=== PATIENT | male | born 1975 | race Two or more races ===

== ENCOUNTER 2017-04-21 22:00 | Emergency (ER) | payer OTHER ==
[~2017-04-21] VITALS: Ht 172.7 cm; Wt 100.0 kg
[2017-04-21 22:16] VITALS: Ht 172.7 cm; Wt 100.0 kg
[2017-04-21 22:19] VITALS: BP 130/90; PULSE 90; RESP 20; TEMP 98.1
[2017-04-21] MEDS ORDERED: SOD CHLORIDE 0.9% 1,000 ML IV STA (22:26)
--- NOTE | 2017-04-21 23:14 | ERD ---
ER Documentation Chief Complaint Chief Complaint ETOH HPI This is a 42-year-old male with a past medical history of diabetes and chronic heavy alcohol abuse who is presenting with alcohol intoxication and a progressive worsening cough over the last 2-3 days. The patient endorses chest pain and mild shortness of breath associated with his cough. He also feels congested. The patient does feel sick. He feels fatigued. He does not endorse myalgias. He has not had a fever or chills. The patient also endorses a mild generalized headache, worse with coughing. The patient has had no vision changes. The patient does not endorse neck or back pain. The patient denies lightheadedness or dizziness. The patient denies nausea or vomiting. The patient denies abdominal pain or changes to bowel movements or urination. The patient has had no focal deficits. The patient has had no weakness or numbness or tingling to the face or extremities. ROS All systems reviewed and are negative except as per history of present illness. Medications Home Meds Reported Medications Insulin Glargine,Hum.rec.anlog (Basaglar Kwikpen U-100) 100 Unit/1 Ml Insuln.pen , 13 UNIT SC QAM 04/21/17 Metformin* (Glucophage*) 1,000 Mg Tablet, 1000 MG PO BID, #60 TAB 04/21/17 Allergies Allergies: Coded Allergies: No Known Allergy (Unverified , 04/23/14) PMhx/Soc History of Surgery: No Anesthesia Reaction: No Hx Neurological Disorder: Yes (CVA) Hx Respiratory Disorders: Yes (Asthma) Hx Cardiac Disorders: No Hx Psychiatric Problems: No Hx Miscellaneous Medical Probl: Yes (PSOARIASIS, DM NON COMPLIANT) Hx Alcohol Use: Yes (DAILY 1-2 BOTTLES OF GENESY) Hx Substance Use: No Hx Tobacco Use: Yes Smoking Status: Current every day smoker FmHx Family History: diabetes Physical Exam Vitals Vital Signs Date Time Temp Pulse Resp B/P Pulse Ox O2 Delivery O2 Flow Rate FiO2 04/21/17 22:19 98.1 90 20 130/90 98 Room Air 04/21/17 22:16 98.1 94 20 130/90 98 Physical Exam Const: No apparent distress, well-developed, well-nourished Head: Normocephalic, Atraumatic Eyes: Normal Conjunctiva. Extraocular movements intact. Pupils equal, round and reactive to light ENT: Normal External Ears, Nose and Mouth. Neck: Full range of motion. No meningismus. Resp: Clear to auscultation bilaterally, No wheezes, rales or rhonchi Cardio: Regular rate and rhythm. No murmurs, rubs or gallops Abd: Obese, soft, non tender, non distended. Normal bowel sounds Skin: No petechiae or rashes Back: No midline tenderness. No CVA tenderness Ext: No cyanosis, or edema. Diffuse scattered plaque-like lesions resembling psoriasis Neur: Awake and alert, oriented 4. Cranial nerves intact. No facial droop. Normal strength, sensation and coordination. Psych: Normal Mood and Affect Result Diagram: 04/21/17 2300 04/21/17 2300 Results 24 hrs Laboratory Tests Test 04/21/17 22:26 04/21/17 23:00 Bedside Glucose 368mg/dL White Blood Count 7.210^3/ul Red Blood Count 4.8210^6/ul Hemoglobin 15.7g/dl Hematocrit 45.0% Mean Corpuscular Volume 93.4fl Mean Corpuscular Hemoglobin 32.6pg Mean Corpuscular Hemoglobin Concent 34.9g/dl Red Cell Distribution Width 12.1% Platelet Count 63592^3/UL Mean Platelet Volume 9.2fl Neutrophils % 43.0% Lymphocytes % 49.6% Monocytes % 5.7% Eosinophils % 1.1% Basophils % 0.3% Nucleated Red Blood Cells % 0.0/100WBC Neutrophils # 3.110^3/ul Lymphocytes # 3.610^3/ul Monocytes # 0.410^3/ul Eosinophils # 0.110^3/ul Basophils # 0.010^3/ul Nucleated Red Blood Cells # 0.010^3/ul Prothrombin Time 12.7Sec Prothrombin Time Ratio 1.0 INR International Normalized Ratio 0.94 Sodium Level 141mmol/L Potassium Level 4.0mmol/L Chloride Level 100mmol/L Carbon Dioxide Level 24mmol/L Anion Gap 21 Blood Urea Nitrogen 12mg/dl Creatinine 0.72mg/dl Glucose Level 356mg/dl Calcium Level 9.3mg/dl Total Bilirubin 0.3mg/dl Direct Bilirubin 0.00mg/dl Indirect Bilirubin 0.3mg/dl Aspartate Amino Transf (AST/SGOT) 66IU/L Alanine Aminotransferase (ALT/SGPT) 123IU/L Alkaline Phosphatase 89IU/L Troponin I < 0.012ng/ml Total Protein 8.1g/dl Albumin 4.5g/dl Globulin 3.60g/dl Albumin/Globulin Ratio 1.25 Lipase 248U/L Ethyl Alcohol Level 281.0mg/dl Current Medications Medications (Trade) Dose Ordered Sig/Melba Route PRN Reason Start Time Stop Time Status Last Admin Dose Admin Sodium Chloride (NS) 1,000 ml @ 1,000 mls/hr Q1H STAT IV 04/21/17 22:26 04/21/17 23:25 DC 04/21/17 22:30 Procedures/MDM MDM The patient's presentation warrants further investigation. I do suspect an upper respiratory tract infection in this patient. There is a possibility of pneumonia, so a chest x-ray will be completed. Blood work will also be obtained to evaluate for infection as well. The patient does clinically appear intoxicated. His alcohol level will be sent off. The patient does endorse chest pain. This is likely associated with his cough. However, a cardiac workup will also be performed. LABS The patient's blood work was obtained and reviewed. The patient's CBC shows no leukocytosis and no left shift. The patient is afebrile and does not appear systemically ill. I do not suspect a systemic infection. The patient is not anemic today. The patient's platelet count is unremarkable. The patient's CMP shows no signs of metabolic or electrolyte emergencies. The patient does have hyperglycemia with a mild elevation of his anion gap. However, the patient's carbon dioxide is normal, and I have low suspicion for DKA. The patient will be given IV fluids in the emergency department. The patient also has an elevation of his transaminases, which is likely attributed to his chronic alcohol use. It could also be reactive, but it does not require emergent evaluation. This may be followed as an outpatient. The patient has unremarkable renal function testing. His INR is unremarkable. His lipase is within normal limits. Troponin is negative. Alcohol level is 281. EKG EKG read by me: Rate/Rhythm: Regular rate and rhythm at a rate of 83 bpm Intervals: Normal [place]: Normal Impression: No evidence of ischemia or arrhythmia IMAGING CXR FINDINGS: The cardiomediastinal silhouette is within normal limits. The lungs are clear. No signs of pleural fluid or pneumothorax are seen. The osseous structures and soft tissues are unremarkable. IMPRESSION: No evidence for active cardiopulmonary disease. Electronically viewed and signed by Shannon Adkins Physician on 04/21/2017 23:15 TREATMENT/DISPOSITION The patient has symptoms of a URI. I do not feel that he requires antibiotics at this time given his normal white count and clear chest x-ray. The patient does not have systemic symptoms consistent with the flu. He was given IV fluids in the emergency department in addition to Toradol with resolution of his discomfort. The patient does have a history of chronic alcohol abuse with some sequelae on his blood work. Alcohol abuse was discussed with the patient and resources were offered regarding alcohol cessation. The patient's chest pain is only with coughing. I have low suspicion for acute coronary syndrome. The patient does not have any evidence of pneumothorax or pleural effusion or pulmonary edema or pneumonia. The patient did have hyperglycemia. He reportedly missed his diabetes medicines today. He was educated on the importance of strict blood sugar control. The patient will follow up with his primary care doctor regarding his psoriasis. At this time, I feel that the patient stable for discharge. The patient will need follow-up with his primary care physician in 2-3 days. The patient will be given strict precautions with which to return to the emergency department. The patient's blood pressure was elevated at greater than 120/80 while in the emergency department. The patient was otherwise stable with no evidence of hypertensive urgency or emergency or end organ damage. The patient does not require admission for blood pressure control. I have discussed with the patient the risks of hypertension. I have advised the patient to follow up with the primary care physician for outpatient monitoring and treatment for hypertension in 2-3 days. I have instructed the patient to return to the ER for any new or worsening symptoms including chest pain, shortness of breath, headache, blurred vision, confusion, nausea, vomiting or LOC. Disclaimer: Inadvertent spelling and grammatical errors are likely due to EHR/ dictation software use and do not reflect on the overall quality of patient care. Note that the electronic time recorded on this note does not necessarily reflect the actual time of the patient encounter. Departure Diagnosis: Primary Impression: URI (upper respiratory infection) URI type: unspecified URI Qualified Code: J06.9 - Upper respiratory tract infection, unspecified type Additional Impressions: Alcohol intoxication Complication of substance-induced condition: uncomplicated Qualified Code: F10.920 - Alcoholic intoxication without complication Chest pain Chest pain type: unspecified Qualified Code: R07.9 - Chest pain, unspecified type Transaminitis Hyperglycemia Psoriasis KENNY PATEL MD Apr 21, 2017 23:14
[2017-04-21 23:15] LABS: BASOPHILS % 0.3 % (0.0-2.0); EOSINOPHILS # 0.1 10^3/ul (0.0-0.5); EOSINOPHILS % 1.1 % (0.0-7.0); HEMOGLOBIN 15.7 g/dl (14.0-18.0); LYMPHOCYTES # 3.6 10^3/ul (0.8-2.9); LYMPHOCYTES % 49.6 % (15.0-51.0); MEAN CORPUSCULAR HEMOGLOBIN 32.6 pg (29.0-33.0); MEAN CORPUSCULAR HGB CONC 34.9 g/dl (32.0-37.0); MEAN CORPUSCULAR VOLUME 93.4 fl (82.0-101.0); MEAN PLATELET VOLUME 9.2 fl (7.4-10.4); MONOCYTE # 0.4 10^3/ul (0.3-0.9); MONOCYTES % 5.7 % (0.0-11.0); NEUTROPHIL # 3.1 10^3/ul (1.6-7.5); PLATELET COUNT 196 10^3/UL (140-415); RED BLOOD COUNT 4.82 10^6/ul (4.70-6.10); RED CELL DISTRIBUTION WIDTH 12.1 % (11.5-14.5); WHITE BLOOD COUNT 7.2 10^3/ul (4.8-10.8)
--- NOTE | 2017-04-21 23:15 | RADRPT ---
PROCEDURE: XR Chest. CLINICAL INDICATION: Chest pain TECHNIQUE: 2 frontal views of the chest in apical lordotic position. COMPARISON: Today, about 4-1/2 hours ago FINDINGS: The cardiomediastinal silhouette is within normal limits. The lungs are clear. No signs of pleural f luid or pneumothorax are seen. The osseous structures and soft tissues are unremarkable. IMPRESSION: No evidence for active cardiopulmonary disease. RPTAT: [facility] Physician Mayito Date Time Electronically viewed and signed by Physician Mayito on 04/21/2017 23:15 RS/
[2017-04-21] MEDS ORDERED: MTF1000T PO (23:27)
[2017-04-21] MEDS ORDERED: INSU100I33 SC (23:27)
[2017-04-21 23:34] LABS: INR 0.94; PROTIME 12.7 Sec (11.9-14.9)
[2017-04-21 23:35] LABS: ALANINE AMINOTRANSFERASE 123 IU/L (13-69); ALBUMIN 4.5 g/dl (3.3-4.9); ALBUMIN/GLOBULIN RATIO 1.25; ALKALINE PHOSPHATASE 89 IU/L (42-121); ANION GAP 21 (8-16); ASPARTATE AMINO TRANSFERASE 66 IU/L (15-46); BILIRUBIN,INDIRECT 0.3 mg/dl (0-1.1); BILIRUBIN,TOTAL 0.3 mg/dl (0.2-1.3); BLOOD UREA NITROGEN 12 mg/dl (7-20); CALCIUM 9.3 mg/dl (8.4-10.2); CARBON DIOXIDE 24 mmol/L (21-31); CHLORIDE 100 mmol/L (97-110); CREATININE 0.72 mg/dl (0.61-1.24); GLUCOSE 356 mg/dl (70-220); SODIUM 141 mmol/L (135-144); TOTAL PROTEIN 8.1 g/dl (6.1-8.1)
[2017-04-21 23:53] LABS: TROPONIN-I < 0.012 ng/ml (0.00-0.12)
[2017-04-22 00:29] LABS: BARBITURATES Negative (NEGATIVE); BENZODIAZEPINES Negative (NEGATIVE); CANNABINOIDS Negative (NEGATIVE); COCAINE Negative (NEGATIVE); OPIATES Negative (NEGATIVE)
[2017-04-22] MEDS ORDERED: KETOROLAC 15 MG INJ IV STA (00:34)
== END 2017-04-22 01:02 | disposition home or self-care (01) ==
LOC: E/R 22:00
DX: J06.9 Acute upper respiratory infection, unspecified (principal); R07.9 Chest pain, unspecified; R74.0 Nonspecific elevation of levels of transaminase and lactic acid dehydrogenase [LDH]; L40.9 Psoriasis, unspecified; E11.65 Type 2 diabetes mellitus with hyperglycemia; J45.909 Unspecified asthma, uncomplicated; F17.210 Nicotine dependence, cigarettes, uncomplicated; Z79.4 Long term (current) use of insulin; Z79.84 Long term (current) use of oral hypoglycemic drugs
CPT/HCPCS: 36415; 71010; 80053; 80306; 80307; 82962; 83690; 84484; 85025; 85610; 93005; J7030; Z7502